=== PATIENT | female | born 1985 | race Caucasian/White ===

== ENCOUNTER 2018-05-01 08:19 | Day surgery (SDC) | payer BC ==
[~2018-05-01 08:19] MED LIST: Lidocaine 1% with EPINEPHrine 1:100,000 20 ML MDV ONE; Sodium Chloride 0.9% 10 ML Syringe FLUSH PRN; Sodium Chloride 0.9% 2.5 ML Syringe FLUSH PRN
[2018-05-01] MEDS ORDERED: Lactated Ringers 1,000 ML IV SCH (09:00)
--- NOTE | 2018-05-01 09:29 | PCM.PREANE ---
Preanesthetic Assessment - Anesthesia/Transfusion/Family Hx Anesthesia History: Prior Anesthesia Without Reaction Family History of Anesthesia Reaction: No Transfusion History: No Prior Transfusion(s) Intubation History: Unknown - Review of Systems General: No Symptoms Pulmonary: No Symptoms Cardiovascular: No Symptoms Gastrointestinal: No Symptoms Neurological: No Symptoms Other: Reports: None - Physical Assessment NPO Status Date: 04/30/18 NPO Status Time: 22:30 O2 Sat by Pulse Oximetry: 98 Respiratory Rate: 15 Vital Signs: Last Vital Signs Temp 36.6 C 05/01/18 08:35 Pulse 72 05/01/18 08:35 Resp 15 05/01/18 08:35 BP 112/64 05/01/18 08:35 Pulse Ox 98 05/01/18 08:35 Height: 1.61 m Weight: 79.832 kg ASA Class: 2 Mental Status: Alert & Oriented x3 Airway Class: Mallampati = 2 Dentition: Reports: Normal Dentition Thyro-Mental Finger Breadths: 2 Mouth Opening Finger Breadths: 3 ROM/Head Extension: Full Lungs: Clear to Auscultation, Normal Respiratory Effort Cardiovascular: Regular Rate, Regular Rhythm - Lab Values: Laboratory Last Values WBC 6.19 K/uL (4.0-11.0) 05/01/18 08:39 RBC 4.24 M/uL (4.30-5.90) L 05/01/18 08:39 Hgb 13.9 g/dL (12.0-16.0) 05/01/18 08:39 Hct 39.9 % (36.0-46.0) 05/01/18 08:39 MCV 94.1 fL (80.0-98.0) 05/01/18 08:39 MCH 32.8 pg (27.0-32.0) H 05/01/18 08:39 MCHC 34.8 g/dL (31.0-37.0) 05/01/18 08:39 RDW Std Deviation 42.2 fl (28.0-62.0) 05/01/18 08:39 RDW Coeff of Pauly 13 % (11.0-15.0) 05/01/18 08:39 Plt Count 195 K/uL (150-400) 05/01/18 08:39 MPV 9.70 fL (7.40-12.00) 05/01/18 08:39 Nucleated RBC % 0.0 /100WBC 05/01/18 08:39 Nucleated RBCs # 0 K/uL 05/01/18 08:39 Urine HCG, Qual NEGATIVE (NEGATIVE) 05/01/18 08:25 - Allergies Allergies/Adverse Reactions: Allergies Allergy/AdvReac Type Severity Reaction Status Date / Time phenytoin [From Dilantin] Allergy Rash Verified 04/27/18 10:53 - Blood Blood Available: No - Anesthesia Plan Pre-Op Medication Ordered: None - Acknowledgements Anesthesia Type Planned: MAC Pt an Appropriate Candidate for the Planned Anesthesia: Yes Alternatives and Risks of Anesthesia Discussed w Pt/Guardian: Yes Pt/Guardian Understands and Agrees with Anesthesia Plan: Yes 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 Musculoskeletal History: Reports: Back Pain, Chronic, Fracture Other Musculoskeletal History: hx of fx arm Neurological History: Reports: Seizure Other Neuro History: hx of seizure 15 years ago- none since Endocrine/Metabolic History: Reports: Obesity/BMI 30+ - Past Surgical History Head Surgeries/Procedures: Reports: None Female Surgical History: Reports: D&C (x1 2005) - SUBSTANCE USE Smoking Status *Q: Current Every Day Smoker (1/2 ppd) Tobacco Use Within Last Twelve Months: Cigarettes Recreational Drug Use History: No - HOME MEDS Home Medications: Home Meds Acetaminophen [Tylenol] 1 - 2 tab PO ASDIRECTED PRN 04/27/18 [History] - CURRENT (IN HOUSE) MEDS Current Meds: Current Medications Lactated Ringer's (Ringers, Lactated) 1,000 mls @ 125 mls/hr IV ASDIRECTED [facility], [facility] Last Admin: 05/01/18 08:57 Dose: 125 mls/hr Sodium Chloride (Saline Flush) 10 ml FLUSH ASDIRECTED PRN PRN Reason: Keep Vein Open Sodium Chloride (Saline Flush) 2.5 ml FLUSH ASDIRECTED PRN PRN Reason: Keep Vein Open Discontinued Medications Lidocaine/Epinephrine (Xylocaine 1% With Epinephrine 1:100,000) Confirm Administered Dose 20 ml .ROUTE .STK-MED ONE Stop: 05/01/18 07:40
[2018-05-01] MEDS ORDERED: Succinylcholine 200 MG/10 ML MDV ONE (10:43)
[2018-05-01] MEDS ORDERED: Propofol 200 MG/20 ML SDV ONE (10:44)
[2018-05-01] MEDS ORDERED: Midazolam 1 MG/ML 2 ML SDV ONE (10:44)
[2018-05-01] MEDS ORDERED: fentaNYL 250 MCG/5 ML SDV ONE (10:44)
[2018-05-01] MEDS ORDERED: Acetaminophen/oxyCODONE 325-5 MG Tab PO PRN (11:34)
--- NOTE | 2018-05-01 12:46 | PCM48HPAN ---
Post Anesthesia Note - EVALUATION WITHIN 48HRS OF ANESTHETIC Vital Signs in Normal Range: Yes Patient Participated in Evaluation: Yes Respiratory Function Stable: Yes Airway Patent: Yes Cardiovascular Function Stable: Yes Hydration Status Stable: Yes Pain Control Satisfactory: Yes Nausea and Vomiting Control Satisfactory: Yes Mental Status Recovered: Yes Resp Rate: 15 - COMMENTS/OBSERVATIONS Free Text/Narrative:: no anesthesia problems
--- NOTE | 2018-05-01 13:01 | PCM.POSTAN ---
POST ANESTHESIA ASSESSMENT - MENTAL STATUS Mental Status: Alert, Oriented - RESPIRATORY Respiratory Status: Respiratory Rate WNL, Airway Patent, O2 Saturation Stable - CARDIOVASCULAR CV Status: Pulse Rate WNL, Blood Pressure Stable - GASTROINTESTINAL GI Status: No Symptoms - PAIN Pain Score: 5 - POST OP HYDRATION Hydration Status: Adequate & Stable - OBSERVATIONS Free Text/Narrative:: no anesthesia problems
--- NOTE | 2018-05-01 13:02 | PCM.OPNOTE ---
- General Post-Op/Procedure Note Date of Surgery/Procedure: 05/01/18 Operative Procedure(s): IUD removal and LEEP Findings: IUD string. Normal appearing cerivix. Normal sized uterus. No adnexal masses. Pre Op Diagnosis: Moderate cervical dysplasia Post-Op Diagnosis: Same Anesthesia Technique: MAC Primary Surgeon: Ailyn Meza EBL in mLs: 3 Complications: None Condition: Good Free Text/Narrative:: Intake & Output 04/30/18 05/01/18 05/01/18 22:59 06:59 14:59 Intake Total 950 Balance 950
--- NOTE | 2018-05-01 18:52 | OR ---
SURGEON: Ailyn Meza MD DATE OF PROCEDURE: 05/01/2018 PREOPERATIVE DIAGNOSIS: Moderate cervical dysplasia (cervical intraepithelial neoplasm 2). POSTOPERATIVE DIAGNOSIS: Moderate cervical dysplasia (cervical intraepithelial neoplasm 2). PROCEDURES: 1. Removal of IUD. 2. Loop electrosurgical excision procedure, LEEP. ANESTHESIA: MAC. ESTIMATED BLOOD LOSS: Less than 5mls COMPLICATIONS: None. BRIEF HISTORY: The patient is a 32-year-old, evaluated in the office for abnormal Pap smear, ASCUS with positive HPV. Colposcopy-directed biopsies were consistent with moderate dysplasia, SHOSHANA 2. These findings including management options were discussed with the patient and she consented to proceed with operative procedure in the form of a LEEP. The risks of these procedures were explained to her in detail including but not limited to infection, bleeding, inability to excise the lesion completely, which might lead to further procedures, injury to adjacent structures. Possible long-term risk of delivery due to cervical insufficiency was also discussed. The patient has a Mirena IUD, which is long overdue for removal and she consented to have this removed at the same time. Understanding these risks, she accepted to proceed with the surgery. Appropriate consent was obtained. DESCRIPTION OF PROCEDURE: The patient was taken to the operating room. Induction of anesthesia was performed without difficulty. After a suitable level of anesthesia, she was placed in dorsal lithotomy position, prepped and draped in the usual sterile fashion for a vaginal LEEP. A time-out was held. Examination under anesthesia revealed a normal-sized anteverted uterus. No palpable adnexal masses noted. No parametrial or paracervical nodularities were palpated. A bivalve coated speculum was then placed into the vagina with good visualization of the cervix obtained. The cervix was normal in appearance with the areas where the biopsies were obtained, healing well. A blacked IUD string was visualized. The vagina was cleaned out. The Mirena IUD was removed easily by grasping the string. Paracervical block was performed with 1% lidocaine with epinephrine in 1:100, 000 dilution. Thus, the cervix was then painted with Lugol's iodine and as expected, the ectocervix stained deeply. Thereafter, using the loop size of 20 x 15, standard LEEP procedure was performed. The cervical specimen was removed circumferentially and tagged at 12 o'clock. Endocervical curetting was then performed and the sample was collected with the Cytobrush. Hemostasis was achieved with cautery ball. The instruments were removed from the patient's vagina. Instrument, sponge count, and needle counts were correct at the end of the procedure. The patient tolerated the procedure well and was taken to the recovery room in stable condition. ADUMVIV / JACOBL /[id number] MTDD
== END 2018-05-01 13:00 | disposition home or self-care (01) ==
LOC: MW.SDS 08:19
PROVIDERS: ATTEND Obstetrics & Gynecology
DX: N87.1 Moderate cervical dysplasia (principal); Z30.432 Encounter for removal of intrauterine contraceptive device; N72 Inflammatory disease of cervix uteri; E66.9 Obesity, unspecified; Z68.30 Body mass index [BMI] 30.0-30.9, adult; F17.210 Nicotine dependence, cigarettes, uncomplicated
CPT/HCPCS: 36415; 57522; 58301; 81025; 85027; A9270; J2250; J3010; J7120; J0330; J2704

== ENCOUNTER 2021-06-15 11:37 | Emergency (ER) | payer OTHER ==
[2021-06-15] MEDS ORDERED: Octyl 2-Cyanoacrylate 1 Tube TOP ONE (12:07)
--- NOTE | 2021-06-15 12:13 | EDM.PDOC ---
ED HPI GENERAL MEDICAL PROBLEM - General Chief Complaint: Laceration Stated Complaint: INJURY TO CHIN Time Seen by Provider: 06/15/21 11:38 Source of Information: Reports: Patient History Limitations: Reports: No Limitations - History of Present Illness INITIAL COMMENTS - FREE TEXT/NARRATIVE: HISTORY AND PHYSICAL: History of present illness: Patient is a 35-year-old female who presents to the emergency room with complaints of tripping and falling hitting her chin on the floor. She does have a small laceration with soft tissue swelling and bruising to her chin. She denies any loss of consciousness. Patient denies any fever, chills, headache, change in vision, syncope or near syncope. Denies any chest pain, back pain, shortness of breath or cough. Denies any GI or symptoms. Review of systems: As per history of present illness and below otherwise all systems reviewed and negative. Past medical history: As per history of present illness and as reviewed below otherwise noncontributory. Surgical history: As per history of present illness and as reviewed below otherwise noncontributory. Social history: See social history for further information Family history: As per history of present illness and as reviewed below otherwise noncontributory. Physical exam: General: Well developed and well nourished 35 year old female. Alert and orientated x 3. Nontoxic in appearance and in no acute distress. Vital signs are stable and have been reviewed by me. Nursing notes were reviewed. HEENT: 2 cm superficial laceration to chin with mild soft tissue swelling and early bruising. Scalp and facial bones are nontender, normocephalic, pupils equal and reactive bilaterally, negative for conjunctival pallor or scleral icterus, mucous membranes moist, TMs normal bilaterally, throat clear, teeth intact, neck supple, nontender, trachea midline. No drooling or trismus noted. No meningeal signs. No hot potato voice noted. Lungs: Clear to auscultation bilaterally. No wheezes, rales, or rhonchi. Chest nontender. Normal work of breathing, no accessory muscles used. Heart: S1S2, regular rate and rhythm without overt murmur, gallops, or rubs. No JVD. No peripheral edema Abdomen: Soft, nondistended, nontender. C-spine/Back: No pinpoint vertebral tenderness upon palpation. No crepitus, step-offs or obvious deformities. Patient is ambulatory into the emergency room without difficulty or deficit. Able to rock back on heels and walk on toes. Denies any urinary or fecal incontinence. Denies any numbness, tingling or saddle paresthesia. No concerns of serious infection, fracture or cord compression, or cauda equina syndrome. Deep tendon reflexes brisk bilaterally. Skin: 2 cm superficial laceration to chin with mild soft tissue swelling and early bruising. Remaining skin is intact, warm, dry. No lesions or rashes noted. Hematologic: No petechiae or purpra. Mucosa appropriate color and normal nail bed color and refill. Extremities: Nontender, moves all extremities per self without difficulty or deficits, negative for cords or calf pain. Neurovascular unremarkable. Neuro: Awake, alert, oriented. Cranial nerves II through XII unremarkable. Cerebellum unremarkable. Motor and sensory unremarkable throughout. Exam nonfocal. Psychiatric: Mood and affect are appropriate. Normal thought process. Answering questions appropriately. Notes: *This patient was seen and evaluated during the 2019 SARS-CoV-2 novel coronavirus pandemic period. Community viral transmission is ongoing at time of this encounter and the emergency department is operating under pandemic response procedures. Area was thoroughly cleansed and washed with chlorhexidine. It is appropriate that the laceration is closed with Dermabond. She is quite tender to the laceration/bruised area. Declines wanting any imaging at this time. Does not meet criteria for head CT. I have talked with the patient about today's findings, in addition to providing specific details for plan of care. Reassessment at the time of disposition demonstrates that the patient is in no acute distress. The patient is stable for discharge, counseling was provided and we discussed in great detail signs and symptoms that would prompt them to return to the Emergency Department. Medication, follow up and supportive care measures were reviewed and discussed. Voices understanding and is agreeable to plan of care. Denies any further questions or concerns at this time. Diagnostics: None Therapeutics: Dermabond Prescription: Tramadol Impression: Head Injury Chin laceration Plan: 1. You were evaluated today on an emergent basis. Please follow the head injury instructions that are printed in your packet. Your laceration was closed with Dermabond glue. This will fall off on its own. Please do not peel or pick at it as this can reopen the laceration. 2. You can alternate Tylenol and ibuprofen as needed for pain and fever management. 3. We encourage you to follow up with your primary care provider and/or recommended specialist in the next few days for re-evaluation and further care/management. 4. If your symptoms should worsen, new symptoms develop or any of the signs and symptoms we discussed should arise please return to the emergency room or call 911 (if needed). Definitive disposition and diagnosis as appropriate pending reevaluation and review of above. 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 Musculoskeletal History: Reports: Back Pain, Chronic, Fracture Other Musculoskeletal History: hx of fx arm Neurological History: Reports: Seizure Other Neuro History: hx of seizure 15 years ago- none since Psychiatric History: Reports: None Endocrine/Metabolic History: Reports: None Hematologic History: Reports: None Immunologic History: Reports: None Oncologic (Cancer) History: Reports: None Dermatologic History: Reports: None - Infectious Disease History Infectious Disease History: Reports: None - Past Surgical History Head Surgeries/Procedures: Reports: None Female Surgical History: Reports: D&C, Other (See Below) Other Female Surgeries/Procedures: polyp removal from ovaries Neurological Surgical History: Reports: None Musculoskeletal Surgical History: Reports: None Social & Family History - Family History Family Medical History: No Pertinent Family History - Tobacco Use Tobacco Use Status *Q: Current Every Day Tobacco User Years of Tobacco use: 20 Packs/Tins Daily: 0.5 - Caffeine Use Caffeine Use: Reports: Energy Drinks - Recreational Drug Use Recreational Drug Use: No ED ROS GENERAL - Review of Systems Review Of Systems: Comprehensive ROS is negative, except as noted in HPI. ED EXAM, SKIN/RASH Exam: See Below (See dictation) ED SKIN PROCEDURES - Laceration/Wound Repair Chin Appearance: Superficial, Linear, Clean Distal NVT: Neuro & Vascular Intact Skin Prep: Chlorhexidine (Hibiciens), Saline Saline Irrigation (cc's): 250 Exploration/Debridement/Repair: Wound Explored, In a Bloodless Field, Explored to Base, No Foreign Material Found Closed with: Dermabond Lac/Wound length In cm: 2 Drain Placement: No Sterile Dressing Applied: None Tetanus Status Addressed: Yes (Updated within last 5 years) Complications: No Course - Vital Signs Last Recorded V/S: Last Vital Signs Temp 98 F 06/15/21 12:17 Pulse 90 06/15/21 12:17 Resp 16 06/15/21 12:17 BP 109/81 06/15/21 12:17 Pulse Ox 97 06/15/21 12:17 - Orders/Labs/Meds Meds: Medications Discontinued Medications Generic Name Dose Route Start Last Admin Trade Name Freq PRN Reason Stop Dose Admin Octyl Cyanoacrylate 1 applic 06/15/21 12:07 06/15/21 12:11 Octyl 2-Cyanoacrylate 1 Tube TOP 06/15/21 12:08 1 applic ONETIME ONE Administration Departure - Departure Time of Disposition: 12:12 Disposition: Home, Self-Care 01 Clinical Impression: Head injury Qualifiers: Encounter type: initial encounter Qualified Code(s): S09.90XA - Unspecified injury of head, initial encounter Laceration of chin Qualifiers: Encounter type: initial encounter Qualified Code(s): S01.81XA - Laceration without foreign body of other part of head, initial encounter - Discharge Information Prescriptions: traMADol [Ultram] 50 mg PO Q4H PRN #10 tab PRN Reason: Pain Instructions: Head Injury, Adult, [id number] Referrals: Audrey Pineda NP [Primary Care Provider] - Forms: ED Department Discharge Additional Instructions: The following information is given to patients seen in the emergency department who are being discharged to home. This information is to outline your options for follow-up care. We provide all patients seen in our emergency department with a follow-up referral. The need for follow-up, as well as the timing and circumstances, are variable depending upon the specifics of your emergency department visit. If you don't have a primary care physician on staff, we will provide you with a referral. We always advise you to contact your personal physician following an emergency department visit to inform them of the circumstance of the visit and for follow-up with them and/or the need for any referrals to a consulting specialist. The emergency department will also refer you to a specialist when appropriate. This referral assures that you have the opportunity for follow-up care with a specialist. All of these measure are taken in an effort to provide you with optimal care, which includes your follow-up. Under all circumstances we always encourage you to contact your private physician who remains a resource for coordinating your care. When calling for follow-up care, please make the office aware that this follow-up is from your recent emergency room visit. If for any reason you are refused follow-up, please contact the [facility] Emergency Department at and asked to speak to the emergency department charge nurse. [facility] [address] [place] [address] [address] Thank you for choosing the [facility] emergency department in [place] for your medical needs today. It was a pleasure caring for you. Today you were seen in the emergency department for laceration care. 1. You were evaluated today on an emergent basis. Please follow the head injury instructions that are printed in your packet. Your laceration was closed with Dermabond glue. This will fall off on its own. Please do not peel or pick at it as this can reopen the laceration. 2. You can alternate Tylenol and ibuprofen as needed for pain and fever management. Tramadol has been sent to [facility]. Take this for moderate to severe pain. Do not take this medication while driving or needing to be functioning outside of the house. 3. We encourage you to follow up with your primary care provider and/or recommended specialist in the next few days for re-evaluation and further care/management. 4. If your symptoms should worsen, new symptoms develop or any of the signs and symptoms we discussed should arise please return to the emergency room or call 911 (if needed). Sepsis Event Note (ED) - Evaluation Sepsis Screening Result: No Definite Risk - Focused Exam Vital Signs: Vital Signs Temp Pulse Resp BP Pulse Ox 06/15/21 12:17 98 F 90 16 109/81 97 06/15/21 11:51 97.4 F 99 16 114/70 98
== END 2021-06-15 12:19 | disposition home or self-care (01) ==
LOC: MW.ED 11:37
DX: S09.90XA Unspecified injury of head, initial encounter (principal); S01.81XA Laceration without foreign body of other part of head, initial encounter; Z72.0 Tobacco use; Z88.8 Allergy status to other drugs, medicaments and biological substances; W01.198A Fall on same level from slipping, tripping and stumbling with subsequent striking against other object, initial encounter
CPT/HCPCS: 12011; 99282; A9270